=== PATIENT | male | born 1970 | race Caucasian/White ===

== ENCOUNTER 2023-05-26 02:08 | Emergency (ER) | payer OTHER ==
[2023-05-26 02:29] VITALS: RESP 20; TEMP 97.8; O2SAT 96
--- NOTE | 2023-05-26 02:56 | ERPHSYRPT ---
- History of Present Illness Time Seen by Provider: 05/26/23 02:35 Source: patient, family Exam Limitations: no limitations Patient Subjective Stated Complaint: pt states that he was at work and began to have pain to his left hip Triage Nursing Assessment: pt ambulated into the er; pt is axo x4; c/o left lower extremity pain; pt states pain radiates from left hip to LLE; no bruising, deformity, shortening present to LLE; strong left pedal pulse; good cap refill to LLE; good ROM to LLE; pt is restless and unable to sit still; no respiratory distress; skin PDW; hypertensive Physician History: This is a 53-year-old white male patient who presents with left hip pain that radiates down to the anterior lateral thigh and knee on the left side. Patient has a history of sciatica. This feels like the same to him. Patient has osteoarthritis in his back and hips. He has a history of gastroesophageal reflux disease, he has a history of hyperlipidemia. He has hypertension at this time. He is currently on 3 different medications to treat hypertension and they are in the middle of adjusting his medications. He has not yet taken his medication. He will take that medication when he gets home. He denies headache . He denies visual changes. He denies shortness of breath. He does not have any chest pain. He did not suffer any acute trauma or fall. He did not injure his back. He denies urinary incontinence. He denies numbness in his feet. Timing/Duration: day(s) (2), worse Method of Injury: other Quality: sharp, stabbing Back Pain Location: paraspinous muscles (No injury left side and left hip) Back Pain Radiation: upper legs (And left hip left upper thigh/anterior lateral thigh on the left) Severity of Pain-Max: moderate Severity of Pain-Current: moderate Modifying Factors: Improves With: movement Associated Symptoms: lower back pain, muscle spasms, No urinary incontinence, No loss of bowel control, No numbness in legs/feet Previous symptoms: same symptoms as today, no recent treatment Allergies/Adverse Reactions: No Known Drug Allergies Allergy (Verified 05/26/23 02:15) Home Medications: Amlodipine Besylate 5 mg [Norvasc 5 mg] 5 mg PO DAILY 05/03/23 [History] Atorvastatin Calcium 20 mg PO DAILY 05/03/23 [History] Lisinopril 20 mg [Zestril 20 MG] 40 mg PO DAILY 05/03/23 [History] Meloxicam 15 mg [Meloxicam 15 MG] 15 mg PO DAILY 05/03/23 [History] Metformin HCl 500 mg [Glucophage 500 MG] 1,000 mg PO BID 05/03/23 [History] Metoprolol Tartrate 25 mg [Lopressor 25MG Tab] 25 mg PO DAILY 05/03/23 [History] Omeprazole 20 mg PO DAILY 05/03/23 [History] Sildenafil Citrate [Viagra] 100 mg PO DAILY 05/26/23 [History] Tamsulosin HCl 0.4 mg [Flomax 0.4 MG] 0.4 mg PO DAILY 05/26/23 [History] Hx Tetanus, Diphtheria Vaccination/Date Given: Yes Hx Influenza Vaccination/Date Given: No Hx Pneumococcal Vaccination/Date Given: No Travel Risk - International Travel Have you traveled outside of the country in past 3 weeks: No - Coronavirus Screening Are you exhibiting any of the following symptoms?: No Close contact with a COVID-19 positive Pt in past 14-21 Days: No - Vaccine Status Have you recieved a Covid-19 vaccination: No - Review of Systems Constitutional: No Symptoms Eyes: No Symptoms Ears, Nose, & Throat: No Symptoms Respiratory: No Symptoms Cardiac: No Symptoms Abdominal/Gastrointestinal: No Symptoms Genitourinary Symptoms: No Symptoms, No Incontinence Musculoskeletal: Back Pain, No Fall, No Injury Skin: No Symptoms Neurological: No Symptoms Psychological: No Symptoms Endocrine: No Symptoms Hematologic/Lymphatic: No Symptoms Immunological/Allergic: No Symptoms All Other Systems: Reviewed and Negative - Past Medical History Pertinent Past Medical History: Yes Neurological History: No Pertinent History Cardiac History: High Cholesterol, Hypertension Respiratory History: No Pertinent History Endocrine Medical History: Diabetes Type II Musculoskeletal History: Osteoarthritis GI Medical History: Diverticulosis, GERD Psycho-Social History: No Pertinent History - Past Surgical History Past Surgical History: Yes Neuro Surgical History: No Pertinent History Cardiac: No Pertinent History Respiratory: No Pertinent History Gastrointestinal: Appendectomy, Cholecystectomy Genitourinary: No Pertinent History Musculoskeletal: No Pertinent History Male Surgical History: No Pertinent History - Social History Smoking Status: Unknown if ever smoked Exposure to second hand smoke: No Drug Use: none Patient Lives Alone: No - Nursing Vital Signs Nursing Vital Signs: Initial Vital Signs Temperature 97.8 F 05/26/23 02:18 Pulse Rate 93 H 05/26/23 02:18 Respiratory Rate 20 05/26/23 02:18 Blood Pressure 205/107 05/26/23 02:18 O2 Sat by Pulse Oximetry 96 05/26/23 02:18 Pain Scale Pain Intensity 10 - Physical Exam General Appearance: no apparent distress, alert, obese Eye Exam: PERRL/EOMI, eyes nml inspection Ears, Nose, Throat Exam: normal ENT inspection, moist mucous membranes Neck Exam: normal inspection, non-tender, supple, full range of motion Respiratory Exam: normal breath sounds, lungs clear, airway intact, No chest tenderness, No respiratory distress Cardiovascular Exam: regular rate/rhythm, normal heart sounds, normal peripheral pulses Gastrointestinal Exam: soft, normal bowel sounds, No tenderness Rectal Exam: not done Back Exam: normal inspection, normal range of motion, muscle spasm (Left lateral paraspinous muscle into the left hip), No CVA tenderness, No vertebral tenderness Extremity Exam: normal inspection, normal range of motion, pelvis stable, tenderness (Left anterior lateral thigh pain. Begins in left hip) Neurologic Exam: alert, oriented x 3, cooperative, fiscal services director II-XII nml as tested, normal mood/affect, nml cerebellar function, nml station & gait, sensation nml Skin Exam: normal color, warm, dry Lymphatic Exam: No adenopathy SpO2 Interpretation: normal SpO2: 96 O2 Delivery: Room Air - Course Nursing assessment & vital signs reviewed: Yes Ordered Tests: Medication Summary Discontinued Medications Generic Name Dose Route Start Last Admin Trade Name Freq PRN Reason Stop Dose Admin Methylprednisolone Sodium 0 mg 05/26/23 02:56 Succinate 125 mg/ Sterile IM 05/26/23 02:57 Water 2 ml STAT ONE Orphenadrine Citrate 60 mg 05/26/23 02:57 Orphenadrine Citrate 60 Mg/2 Ml Vial IM 05/26/23 02:58 STAT ONE Oxycodone/Acetaminophen 1 tab 05/26/23 02:56 Oxycodone Hcl/Apap 5 Mg/325 Mg Tablet PO 05/26/23 02:57 STAT STA - Progress Progress: improved, pain not gone completely Progress Note: 05/26/23 03:03 This patient has a history of sciatica. The pain is the same as his other, prior episodes of sciatica. He did not suffer any fall or acute trauma. He has strong palpable pedal pulses. There is no calf tenderness there is no evidence of cellulitis. There is no leg swelling. This patient's medical issue is 1 of low complexity. No radiographic or laboratory studies are necessary at this time. The workup is based on review of the patient's past medical history, review the patient's medication list, review of the patient's drug allergy list, history of present illness and physical findings on examination. Counseled pt/family regarding: diagnosis, need for follow-up Medical Desision Making - Independent Historian Additional History obtained from: Spouse - Diagnostic Testing Diagnostic test were ordered, analyzed, and reviewed by me: No - Risk of complications The pt has a mod risk of morbidity or mortality based on: Need for prescription drug management - Departure Departure Disposition: Home Clinical Impression: Sciatica, left side Condition: Stable Critical Care Time: No Referrals: DOCTOR,NO FAMILY [Primary Care Provider] - Follow up/PCP as directed Additional Instructions: Take your medications as prescribed. Make sure you also take your blood pressure medication as soon as you get home this morning. Call your primary care provider on 05/28/2023 to make arrangements for further evaluation management. Monitor your blood sugar and blood pressure levels while you are taking your steroid medication. Prescriptions: Prednisone 10 mg [Deltasone 10 mg] 10 mg PO TID #12 tablet Orphenadrine Citrate 100 mg [Norflex 100 MG Tablet] 100 mg PO BID #10 tab
[2023-05-26] MEDS ORDERED: Sterile H2O 10 ml IJ ONE (03:00)
[2023-05-26] MEDS ORDERED: PERCOCET TABLET 5/325MG ONE (03:00)
[2023-05-26] MEDS ORDERED: solu-MEDROL ONE (03:00)
[2023-05-26] MEDS ORDERED: Norflex 60 MG/2 ML ONE (03:00)
[2023-05-26] MEDS: PERCOCET TABLET 5/325MG PO STA (03:02)
[2023-05-26] MEDS: Norflex 60 MG/2 ML IM ONE (03:02)
[2023-05-26] MEDS: solu-MEDROL 125 MG, Sterile H2O 10 ml 2 ML IM ONE (03:02)
[2023-05-26 03:12] VITALS: BP 187/97; PULSE 95
== END 2023-05-26 03:35 | disposition home or self-care (01) ==
LOC: ED 02:08
DX: M54.32 Sciatica, left side (principal); E78.5 Hyperlipidemia, unspecified; I10 Essential (primary) hypertension; E11.9 Type 2 diabetes mellitus without complications; Z79.52 Long term (current) use of systemic steroids; Z79.84 Long term (current) use of oral hypoglycemic drugs; Z79.899 Other long term (current) drug therapy; Z28.310 Unvaccinated for COVID-19
CPT/HCPCS: 96372; 99283; J2360; J2930; A9270-GY